=== PATIENT | female | born 1960 | race Caucasian/White ===

== ENCOUNTER 2019-06-18 08:36 | Emergency (ER) | payer OTHER ==
[2019-06-18 08:46] VITALS: BP 134/68
[2019-06-18] MEDS ORDERED: Albuterol/Ipratropium NEB.SOL* Albuterol 2.5 MG/Ipratropium 0.5 MG 3 ML INH ONE (08:54)
[2019-06-18] MEDS ORDERED: Azithromycin TAB* 250 MG PO ONE (08:55)
[2019-06-18] MEDS ORDERED: predniSONE TAB* 20 MG PO ONE (08:55)
--- NOTE | 2019-06-18 08:59 | UC ---
General HPI - HPI Summary HPI Summary: 59-year-old woman comes in with a chief complaint of shortness of breath. She has COPD. She's had upper respiratory tract infection symptoms for at least a week. Been having green sputum. She has oxygen that she uses when necessary at home. Last 4 days she's been wearing continuously. Breathing treatments help some but overall she's getting worse. Decreased ability to ambulate secondary to shortness of breath. Her chest feels tight from shortness of breath she states but denies any chest pain otherwise. No pedal edema no calf pain. - History of Current Complaint Chief Complaint: UCGeneralIllness Stated Complaint: DIFFICULTY BREATHING Time Seen by Provider: 06/18/19 08:50 Pain Intensity: 0 - Allergy/Home Medications Allergies/Adverse Reactions: Allergies Allergy/AdvReac Type Severity Reaction Status Date / Time No Known Allergies Allergy Verified 06/18/19 08:46 Home Medications: Home Medications Albuterol 2.5MG/3ML (0.083%)* [Ventolin 2.5 MG/3 ML NEB.AMANDA*] 2.5 mg INH Q4H [History Confirmed 06/18/19] Albuterol HFA INHALER* [Ventolin HFA Inhaler*] 2 puff INH Q4H PRN 06/18/19 [ History Confirmed 06/18/19] FLUoxetine CAP* [PROzac CAP*] 10 mg PO DAILY 06/18/19 [History Confirmed ] Levothyroxine Sodium 125 mcg PO DAILY 06/18/19 [History Confirmed 06/18/19] Zolpidem Tartrate [Ambien] 5 mg PO DAILY 06/18/19 [History Confirmed 06/18/19] PMH/Surg Hx/FS Hx/Imm Hx Previously Healthy: Yes Endocrine History: Hypothyroidism Respiratory History: COPD - Surgical History Surgical History: Yes Surgery Procedure, Year, and Place: hysterectomy - Family History Known Family History: Positive: Non-Contributory - Social History Alcohol Use: Occasionally Substance Use Type: None Smoking Status (MU): Light Every Day Tobacco Smoker Length of Time of Smoking/Using Tobacco: 40y Review of Systems All Other Systems Reviewed And Are Negative: Yes Constitutional: Positive: Other - SEE HPI Skin: Positive: Negative Eyes: Positive: Negative ENT: Positive: Nasal Discharge Respiratory: Positive: Shortness Of Breath, Cough, Other - SEE HPI Cardiovascular: Positive: Other - SEE HPI Gastrointestinal: Positive: Negative Motor: Positive: Negative Neurovascular: Positive: Negative Musculoskeletal: Positive: Negative. Negative: Calf Tenderness, Edema Neurological: Positive: Negative Psychological: Positive: Negative Is Patient Immunocompromised?: No Physical Exam Triage Information Reviewed: Yes Appearance: Well-Appearing, No Pain Distress, Well-Nourished Vital Signs: Initial Vital Signs Temp 98.3 F 06/18/19 08:40 Pulse 78 06/18/19 08:40 Resp 24 06/18/19 08:40 BP 134/68 06/18/19 08:40 Pulse Ox 94 06/18/19 08:40 Vital Signs Reviewed: Yes Eye Exam: Normal Eyes: Positive: Conjunctiva Clear ENT: Positive: Nasal congestion Neck: Positive: Supple Respiratory: Positive: Respiratory distress - MILD, Wheezing Cardiovascular: Positive: RRR Musculoskeletal: Positive: Strength Intact, ROM Intact, No Edema - NO CALF TENDERNESS Neurological: Positive: Alert Psychological: Positive: Age Appropriate Behavior Skin Exam: Normal Course/Dx - Course Course Of Treatment: Patient Name: MIRACLE GREENBERG Medical Record#: [id number] Ordering Physician: Cliff Gandhi MD Acct.#: [id number] : 1960 Age: 59 Sex: F Location: [facility] Exam Date: 06/18/19902 ADM Status: [facility] ER Order Information: CHEST PA LAT 2 VWS Accession Number: [id number] CPT: 64780 INDICATION: Shortness of breath COMPARISON: There are no relevant prior studies available for comparison. TECHNIQUE: Dual-energy PA and lateral views of the chest were obtained. FINDINGS: The lungs are clear. There is no pleural effusion. The cardiomediastinal silhouette is within normal limits. The upper abdominal contents are normal. Osseous structures are unremarkable. IMPRESSION: 1. No acute cardiopulmonary process by radiograph. <Electronically signed by Jatinder Scales MD in OV> 06/18/19 0943 I discussed the x-rays with the patient. I discussed going to the emergency department for further evaluation and care of the patient declined going to emergency department. Plan is to treat with Levaquin 750 mg by mouth daily for 7 days. Also treated with prednisone. She will use her nebulizers. Follow-up primary care doctor go the emergency department if not improved worse. - Diagnoses Provider Diagnosis: COPD exacerbation, Bronchitis Discharge - Sign-Out/Discharge Documenting (check all that apply): Patient Departure All imaging exams completed and their final reports reviewed: Yes - Discharge Plan Condition: Stable Disposition: HOME Prescriptions: Levofloxacin TAB* [Levaquin TAB*] 750 mg PO DAILY #7 tab predniSONE TAB* [Deltasone 20 MG TAB*] 40 mg PO DAILY #10 tab Patient Education Materials: COPD (Chronic Obstructive Pulmonary Disease) (ED) , Acute Bronchitis (ED) Referrals: Jamil Christianson [Primary Care Provider] - Additional Instructions: FOLLOW UP WITH YOUR DOCTOR IF NOT COMPLETELY IMPROVED. GO TO THE EMERGENCY DEPARTMENT IF NOT IMPROVED OR WORSE; SHORTNESS OF BREATH, CHEST PAIN, YOU FEEL ILL OR ANY QUESTIONS OR CONCERNS. - Billing Disposition and Condition Condition: STABLE Disposition: Home
== END 2019-06-18 10:32 | disposition home or self-care (01) ==
LOC: UCCORT 08:36
DX: J44.1 Chronic obstructive pulmonary disease with (acute) exacerbation (principal); E03.9 Hypothyroidism, unspecified; F17.200 Nicotine dependence, unspecified, uncomplicated
CPT/HCPCS: 71046; 99213; A9270-GY; G0463; J7512